=== PATIENT | male | born 1945 | race Caucasian/White ===

== ENCOUNTER 2023-08-20 22:04 | Inpatient (IN) | payer MEDICARE, OTHER ==
[~2023-08-20] VITALS: Ht 167.6 cm; Wt 84.9 kg
[2023-08-20 22:44] LABS: BASOPHILS PERCENT AUTO 1 % (0-2); EOSINOPHILS ABSOLUTE AUTO 0.34 K/mm3 (0.00-0.68); EOSINOPHILS PERCENT AUTO 3 % (0-6); Hematocrit 39.9 % (37.0-53.0); Hemoglobin 13.4 g/dL (13.5-17.5); IMMATURE GRAN ABSOLUTE AUTO 0.22 K/mm3 (0.00-0.10); IMMATURE GRAN PERCENT AUTO 2 % (0-1); LYMPHOCYTES ABSOLUTE AUTO 1.81 K/mm3 (0.84-5.20); LYMPHOCYTES PERCENT AUTO 15 % (21-46); MONOCYTES ABSOLUTE AUTO 1.06 K/mm3 (0.16-1.47); MONOCYTES PERCENT AUTO 9 % (4-13); Mean Corpuscular HGB 29.5 pg (26.0-34.0); Mean Corpuscular HGB Conc 33.6 g/dL (31.5-36.5); Mean Corpuscular Volume 88 fL (80-100); Mean Platelet Volume 9.3 fL (9.1-12.4); NEUTROPHILS PERCENT AUTO 71 % (41-73); Platelet Count 211 K/mm3 (150-400); RDW Coefficient Variation 13.3 % (11.7-14.2); RDW Standard Deviation 42.9 fL (35.1-46.3); Red Blood Cell Count 4.55 M/mm3 (4.30-5.90); White Blood Cell Count 11.93 K/mm3 (4.00-11.30)
[2023-08-20 23:02] LABS: Albumin, Blood 3.6 g/dL (3.4-5.0); Albumin/Globulin Ratio 1.2 (0.8-1.8); Bilirubin, Total 0.4 mg/dL (0.1-1.0); Bun/Creatinine Ratio 15.9 (12.0-20.0); Calcium, Blood 9.1 mg/dL (8.5-10.1); Creatinine, Blood 2.58 mg/dL (0.60-1.20); Globulin, Blood 2.9 g/dL (2.2-4.0); Potassium, Blood 4.4 mmol/L (3.5-5.5); Total Protein, Blood 6.5 g/dL (6.4-8.2)
[2023-08-20 23:14] LABS: Source, Urine Clean Catch
[2023-08-20 23:16] LABS: Bilirubin, Urine Neg (Neg); Blood, Urine 1+ (Neg); Glucose Qualitative, Urine 2+ (Neg); Ketones, Urine Neg (Neg); Leukocyte Esterase, Urine 1+ (Neg); Nitrite, Urine Neg (Neg); Protein, Urine Neg (Neg); Urobilinogen, Urine NORM (Normal)
[2023-08-20 23:24] LABS: Color, Urine Yellow (P-Yellow)
[2023-08-20 23:25] LABS: Appearance, Urine Hazy (Clear)
[2023-08-20 23:26] LABS: Bacteria Few /hpf; Red Blood Cells, Urine 0-2 /hpf (0-2); Squamous Epithelial Cells Mod /hpf (Few); White Blood Cells, Urine 0-2 /hpf (0-5)
[2023-08-20] MEDS ORDERED: PRED5 PO (23:50)
[2023-08-20] MEDS ORDERED: METF500 PO (23:50)
[2023-08-20] MEDS ORDERED: ALLO100 PO (23:50)
[2023-08-20] MEDS ORDERED: Amlodipine Bes2.5 MG PO (23:51)
[2023-08-20] MEDS ORDERED: LISI5 PO (23:51)
[2023-08-20] MEDS ORDERED: Acetaminophen 500 MG Tab PO ONE (23:55)
[2023-08-21] MEDS ORDERED: FentaNYL Citrate 50 MCG/ML 2 ML Injection IV ONE (00:50)
[2023-08-21] MEDS ORDERED: Ketorolac Tromethamine 30mg Vial IV ONE (02:40)
[2023-08-21] MEDS ORDERED: NS 1,000 ML IV SCH ×2 (02:45→09:00)
[2023-08-21 03:55] LABS: Source, Urine Clean Catch
[2023-08-21 03:58] LABS: Bilirubin, Urine Neg (Neg); Blood, Urine 1+ (Neg); Glucose Qualitative, Urine 1+ (Neg); Ketones, Urine Neg (Neg); Leukocyte Esterase, Urine Neg (Neg); Nitrite, Urine Neg (Neg); Protein, Urine Neg (Neg); Specific Gravity, Urine 1.015 (1.003-1.022); Urobilinogen, Urine NORM (Normal)
[2023-08-21 04:14] LABS: Appearance, Urine Clear (Clear); Color, Urine Yellow (P-Yellow)
[2023-08-21 04:15] LABS: Bacteria Few /hpf; Red Blood Cells, Urine 0-2 /hpf (0-2); Squamous Epithelial Cells Few /hpf (Few); White Blood Cells, Urine 0-2 /hpf (0-5)
[2023-08-21 04:26] LABS: Bun/Creatinine Ratio 14.5 (12.0-20.0); Calcium, Blood 8.3 mg/dL (8.5-10.1); Creatinine, Blood 2.83 mg/dL (0.60-1.20); Potassium, Blood 4.4 mmol/L (3.5-5.5)
[2023-08-21] MEDS ORDERED: HYDROcodone 10-APAP 325 TAB PO PRN (05:05)
[2023-08-21] MEDS ORDERED: Acetaminophen 325 MG TABLET PO PRN (05:10)
[2023-08-21] MEDS ORDERED: Ondansetron HCl 2 MG / ML 2ML Vial IV PRN (05:10)
[2023-08-21] MEDS ORDERED: FLU VACC QS2023-24(6MOS UP)/PF 60 MCG/0.5 ML SYRINGE IM SCH (05:10)
[2023-08-21] MEDS ORDERED: Naloxone HCl 0.4MG / ML 1ML Vial IV PRN (05:10)
[2023-08-21] MEDS ORDERED: FentaNYL Citrate 50 MCG/ML 2 ML Injection IV PRN (05:10)
[2023-08-21] MEDS ORDERED: Lactated Ringer's 1,000 ML IV SCH (06:00)
[2023-08-21] MEDS ORDERED: CefTRIAXone Sodium 1,000 MG in NS 50 ML IV SCH (06:00)
[2023-08-21 07:39] VITALS: BP 158/89
[2023-08-21] MEDS ORDERED: Lactobacil 2-S.Thermo-Bifido 1 1 Cap PO SCH (09:00)
[2023-08-21] MEDS ORDERED: Tamsulosin HCl 0.4 MG Cap PO SCH (09:00)
[2023-08-21] MEDS ORDERED: AmLODIPine Besylate 5 MG Tab PO SCH (09:00)
[2023-08-21] MEDS ORDERED: Allopurinol 100 MG Tab PO SCH (09:30)
[2023-08-21] MEDS ORDERED: OxyCODONE 5 mg/Acetamin 325 mg TABLET PO PRN (11:45)
[2023-08-21] MEDS ORDERED: PredniSONE 5 MG Tab PO SCH (12:00)
[2023-08-21 15:52] VITALS: BP 131/52
[2023-08-21] MEDS ORDERED: Insulin Human Lispro 100 Units/ML 3ML Syringe SC SCH (16:30)
--- NOTE | 2023-08-21 19:36 | NUR ---
SHIFT SUMMARY PATIENT ARRIVED ON UNIT AT 0700. CURRENTLY NOT HAVING PAIN. HE WAS MEDICATED THROUGHOUT DAY FOR PAIN PER EMAR. HE IS AOX4 AND UP INDEPENDENT IN THE ROOM. HE IS ABLE TO MAKE NEEDS KNOWN.
[2023-08-21 20:17] VITALS: BP 129/60
[2023-08-22 03:19] VITALS: BP 126/48
[2023-08-22 04:53] LABS: BASOPHILS ABSOLUTE AUTO 0.05 K/mm3 (0.00-0.23); BASOPHILS PERCENT AUTO 1 % (0-2); EOSINOPHILS ABSOLUTE AUTO 0.17 K/mm3 (0.00-0.68); EOSINOPHILS PERCENT AUTO 2 % (0-6); Hematocrit 33.4 % (37.0-53.0); Hemoglobin 11.1 g/dL (13.5-17.5); IMMATURE GRAN ABSOLUTE AUTO 0.13 K/mm3 (0.00-0.10); IMMATURE GRAN PERCENT AUTO 2 % (0-1); LYMPHOCYTES ABSOLUTE AUTO 1.19 K/mm3 (0.84-5.20); LYMPHOCYTES PERCENT AUTO 14 % (21-46); MONOCYTES ABSOLUTE AUTO 0.68 K/mm3 (0.16-1.47); MONOCYTES PERCENT AUTO 8 % (4-13); Mean Corpuscular HGB 29.6 pg (26.0-34.0); Mean Corpuscular HGB Conc 33.2 g/dL (31.5-36.5); Mean Corpuscular Volume 89 fL (80-100); Mean Platelet Volume 9.6 fL (9.1-12.4); NEUTROPHILS ABSOLUTE AUTO 6.34 K/mm3 (1.96-9.15); NEUTROPHILS PERCENT AUTO 74 % (41-73); Platelet Count 165 K/mm3 (150-400); RDW Coefficient Variation 13.1 % (11.7-14.2); RDW Standard Deviation 43.1 fL (35.1-46.3); Red Blood Cell Count 3.75 M/mm3 (4.30-5.90); White Blood Cell Count 8.56 K/mm3 (4.00-11.30)
[2023-08-22 05:15] LABS: Albumin, Blood 2.9 g/dL (3.4-5.0); Albumin/Globulin Ratio 1.2 (0.8-1.8); Bilirubin, Total 0.5 mg/dL (0.1-1.0); Bun/Creatinine Ratio 12.2 (12.0-20.0); Calcium, Blood 8.3 mg/dL (8.5-10.1); Creatinine, Blood 3.2 mg/dL (0.60-1.20); Globulin, Blood 2.5 g/dL (2.2-4.0); Magnesium, Blood 1.9 mg/dL (1.6-2.4); Phosphorus, Blood 3.6 mg/dL (2.5-4.9); Potassium, Blood 5.1 mmol/L (3.5-5.5); Total Protein, Blood 5.4 g/dL (6.4-8.2)
--- NOTE | 2023-08-22 06:29 | NUR ---
SHIFT SUMMARY: ETHAN IS A&OX4. VSS, NO ACUTE EVENTS OVERNIGHT. IV TO R AC PATENT. PT IS TOLERATING PO INTAKE WELL AND REPORTS GOOD PAIN CONTROL WITH MEDICATIONS PER MAR, NOT REQUIRING PAIN MEDICATION UNTIL THIS AM. PT DENIES DIFFICULTY URINATING AND STATES THAT HIS PAIN HAS NOT CHANGED OVERNIGHT, DENIES BLOOD IN THE URINE. HE IS INDEPENDENT IN THE ROOM. CREATININE TRENDING UP, GFR TRENDING DOWN. HE IS LYING IN BED WITH THE CALL LIGHT IN REACH, WHICH HE HAS USED APPROPRIATELY THIS SHIFT. WILL GIVE REPORT TO DAY SHIFT RN.
[2023-08-22 07:14] VITALS: BP 112/59
--- NOTE | 2023-08-22 07:54 | NUR ---
DURING SHIFT REPORT AT 0658, URINE IN TOILET OBSERVED, THERE ARE A COUPLE LARGER DELGADO SPECKS IN TOILET, PATIENT STATES HE THINKS PAOLO HE PASSED SOME OF THE STONE. DENIED ANY PAIN AT THAT TIME.
[2023-08-22] MEDS ORDERED: Heparin Sodium,Porcine 5,000 UNIT/0.5 ML SDV SC SCH (09:00)
[2023-08-22] MEDS ORDERED: NS 1,000 ML IV SCH (12:00)
[2023-08-22 16:31] LABS: Bun/Creatinine Ratio 13.8 (12.0-20.0); Calcium, Blood 8.8 mg/dL (8.5-10.1); Creatinine, Blood 2.39 mg/dL (0.60-1.20); Potassium, Blood 5.4 mmol/L (3.5-5.5)
[2023-08-22 17:03] VITALS: BP 154/79
--- NOTE | 2023-08-22 18:08 | NUR ---
SHIFT SUMMARY PATIENT WITH NO ACUTE EVENTS DURING SHIFT AFTER SHIFT CHANGE. HE HAS NOT REQUIRED ANY FURTHER PAIN MEDICATION TODAY. HE IS UP AD [place] TO THE BATHROOM AND ABLE TO MAKE NEEDS KNOWN. BED IN LOW POSITION, CALL LIGHT IN REACH.
[2023-08-22 19:43] VITALS: BP 177/80
[2023-08-23 02:43] VITALS: BP 130/60
--- NOTE | 2023-08-23 05:38 | NUR ---
SHIFT SUMMARY NOC PT A/O X 4. PLEASANT AND COOPERATIVE WITH CARE. NO ACUTE EVENTS TO REPORT. VSS. PT URINE BEING STRAINED DUE TO POSSIBLE PASSING OF 2 KIDNEY STONES. SLIGHT SEDIMENT FOUND DURING ONE CHECK, BUT NO SOLID MATTER. CONTINOUS IVF @ 100 ML/HR INFUSING. PAIN BEING MANAGED PER EMAR. ON CONTIUOUS BIOX DUE TO SEDATION EFFECTS OF OPIODS, BUT HAS BEEN MAINTAINING SPO2 >92%. PT MAY BE COBRA TRANSFERRED TO HIGHER LEVEL OF CARE IF STONES CANNOT BE PASSED ON OWN. HS CBG 190 CNI. PT HAD BM DURING SHIFT. PT IS CURRENTLY RESTING WITH BED IN LOWEST POSITION, AND CALL LIGHT WITHIN REACH.
[2023-08-23 05:40] LABS: Albumin, Blood 3.2 g/dL (3.4-5.0); Anion Gap 2 mmol/L (6-16); Blood Urea Nitrogen 25 mg/dL (8-24); Bun/Creatinine Ratio 13.2 (12.0-20.0); CO2, Blood 24 mmol/L (21-32); Calcium, Blood 8.8 mg/dL (8.5-10.1); Chloride, Blood 112 mmol/L (98-108); Creatinine, Blood 1.89 mg/dL (0.60-1.20); Glomerular Filtration Rate 36 (60-); Glucose, Blood 126 mg/dL (70-99); Phosphorus, Blood 3.1 mg/dL (2.5-4.9); Potassium, Blood 4.5 mmol/L (3.5-5.5); Sodium, Blood 138 mmol/L (136-145)
[2023-08-23 07:11] VITALS: BP 139/69
[2023-08-23] MEDS ORDERED: Ciprofloxacin 400MG/D5 200ML 200 ML IV STA (11:03)
[2023-08-23] MEDS ORDERED: LACT PO (11:06)
[2023-08-23] MEDS ORDERED: CEFU500T30 PO (11:07)
[2023-08-23] MEDS ORDERED: Ciprofloxacin 500 MG Tab PO ONE (11:25)
[2023-08-23] MEDS ORDERED: CIPRO500 M1 PO (11:40)
--- NOTE | 2023-08-23 12:36 | NUR ---
DISCHARGE SUMMARY PATIENTS IV REMOVED PRIOR TO ONE TIME DOSE OF CIPRO BEING ORDERED AFTER DISCHARGE , DECLINED TO ACCEPT NEW IV. DOC NOTIFIED, CHANGED TO PO DOSING WHICH PATIENT RECEIVED. PATIENT DECLINED MEDS TO BE FAXED TO ANOTHER PHARMACY OTHER THAN [facility], STATING FINANCIAL CONCERNS. EDUCATION PROVIDED REGARDING ABX DOSING. DISCHARGE PACKET AND REVISION GIVEN AND REVIEWED, QUESTIONS ANSWERED, VERBALIZED UNDERSTANDING. PATIENT TO DRIVE SELF HOME.
== END 2023-08-23 11:46 | disposition home or self-care (01) | DRG 872 ==
LOC: ER 22:04 → MEDS 22:05 → ENPENDDIS 08-23 11:36 → MEDS 08-23 11:46
PROVIDERS: Emergency Medicine; Internal Medicine; Student in an Organized Health Care Education/Training Program; ADMIT Student in an Organized Health Care Education/Training Program
DX: A41.52 Sepsis due to Pseudomonas (principal); N17.9 Acute kidney failure, unspecified; N13.6 Pyonephrosis; Z66 Do not resuscitate; I12.9 Hypertensive chronic kidney disease with stage 1 through stage 4 chronic kidney disease, or unspecified chronic kidney disease; E11.22 Type 2 diabetes mellitus with diabetic chronic kidney disease; N18.30 Chronic kidney disease, stage 3 unspecified; M79.7 Fibromyalgia; E86.0 Dehydration; M10.9 Gout, unspecified; Z79.84 Long term (current) use of oral hypoglycemic drugs; Z79.52 Long term (current) use of systemic steroids
CPT/HCPCS: 36415; 74177; 80048; 80053; 80069; 81001; 82947; 83735; 84100; 85025; 87077; 87086; 87186; 94762; 96361; 96365-59; 96366; 96375; 96376; 99285-25; A9270; G0378; J0696; J1885; J3010; J7030; J7512; Q9967

== ENCOUNTER 2024-01-08 08:18 | Day surgery (SDC) | payer OTHER ==
[~2024-01-08] VITALS: Ht 167.6 cm; Wt 82.9 kg
[~2024-01-08 08:18] MED LIST: ALLO100 PO; Amlodipine Bes2.5 MG PO; Balanced Salt Epinephrine Irrigation Solution 500 mL IR SCH; CEFU500T30 PO; CIPRO500 M1 PO; LACT PO; LISI5 PO; Lidocaine HCl/Pf 1% 5 ML VIAL XX SCH; METF500 PO; Moxifloxacin HCL 0.5 MG/0.1 ML 0.4MLSYR RIGHTEYE SCH; NS 500 ML IV ONE; PHENYLEPHRINE\\TROPICAMIDE\\TETRACAINE OPHTHALMIC DILATING SOLN RIGHTEYE PRN; PRED5 PO; Povidone-Iodine 450 DROP/30 ML Solution RIGHTEYE SCH; Triamcinolone Inj Susp 40 MG / ML 1ML Vial INJ SCH; Triamcinolone Inj Susp 40 MG / ML 1ML Vial ONE
[2024-01-08] MEDS ORDERED: Midazolam HCl 1MG / ML 2ML Vial ONE (08:31)
[2024-01-08] MEDS ORDERED: FentaNYL Citrate 50 MCG/ML 2 ML Injection ONE (08:31)
[2024-01-08] MEDS ORDERED: NS 500 ML IV ONE (08:35)
[2024-01-08] MEDS ORDERED: TERB250 PO (08:39)
[2024-01-08] MEDS ORDERED: Phenylephrine Frt 10% Opth (ORSC) ONE (08:48)
== END 2024-01-08 10:05 | disposition home or self-care (01) ==
LOC: ORSCSDS 08:18
PROVIDERS: Ophthalmology
PROC: 08RJ3JZ Replacement of Right Lens with Synthetic Substitute, Percutaneous Approach (ICD-10-PCS; principal; 2024-01-08 09:30)
DX: E11.36 Type 2 diabetes mellitus with diabetic cataract (principal); H25.813 Combined forms of age-related cataract, bilateral; H25.11 Age-related nuclear cataract, right eye; I10 Essential (primary) hypertension; F17.210 Nicotine dependence, cigarettes, uncomplicated; M79.7 Fibromyalgia; Z79.84 Long term (current) use of oral hypoglycemic drugs; Z79.899 Other long term (current) drug therapy
CPT/HCPCS: 82947; J2250; J3010; J3301; J7040; V2632

== ENCOUNTER 2024-01-15 08:15 | Day surgery (SDC) | payer OTHER ==
[~2024-01-15] VITALS: Ht 167.6 cm; Wt 82.2 kg
[~2024-01-15 08:15] MED LIST changes: +Moxifloxacin HCL 0.5 MG/0.1 ML 0.4MLSYR LEFTEYE SCH; -Moxifloxacin HCL 0.5 MG/0.1 ML 0.4MLSYR RIGHTEYE SCH; +PHENYLEPHRINE\\TROPICAMIDE\\TETRACAINE OPHTHALMIC DILATING SOLN LEFTEYE PRN; -PHENYLEPHRINE\\TROPICAMIDE\\TETRACAINE OPHTHALMIC DILATING SOLN RIGHTEYE PRN; +Povidone-Iodine 450 DROP/30 ML Solution LEFTEYE SCH; -Povidone-Iodine 450 DROP/30 ML Solution RIGHTEYE SCH; +TERB250 PO
[2024-01-15] MEDS ORDERED: NS 500 ML IV ONE (08:53)
[2024-01-15] MEDS ORDERED: Midazolam HCl 1MG / ML 2ML Vial ONE (09:18)
== END 2024-01-15 10:08 | disposition home or self-care (01) ==
LOC: ORSCSDS 08:15
PROVIDERS: Ophthalmology
PROC: 08RK3JZ Replacement of Left Lens with Synthetic Substitute, Percutaneous Approach (ICD-10-PCS; principal; 2024-01-15 09:30)
DX: E11.36 Type 2 diabetes mellitus with diabetic cataract (principal); H25.12 Age-related nuclear cataract, left eye; K21.9 Gastro-esophageal reflux disease without esophagitis; I10 Essential (primary) hypertension; Z96.1 Presence of intraocular lens; Z79.84 Long term (current) use of oral hypoglycemic drugs; Z79.899 Other long term (current) drug therapy
CPT/HCPCS: 82947; J2250; J3301; J7040; V2632